=== PATIENT | female | born 1955 ===

== ENCOUNTER 2021-03-03 14:52 | Emergency (ER) | payer MEDICARE ==
[~2021-03-03] VITALS: Ht 152.4 cm; Wt 63.5 kg
[2021-03-03 17:50] VITALS: BP 101/53
== END 2021-03-03 20:48 | disposition left against medical advice (07) ==
LOC: ER 14:52
DX: R22.31 Localized swelling, mass and lump, right upper limb (principal); Z53.21 Procedure and treatment not carried out due to patient leaving prior to being seen by health care provider; W57.XXXA Bitten or stung by nonvenomous insect and other nonvenomous arthropods, initial encounter; Y93.89 Activity, other specified; Y92.89 Other specified places as the place of occurrence of the external cause; Y99.8 Other external cause status